=== PATIENT | female | born 1960 | race Caucasian/White ===

== ENCOUNTER 2017-01-19 06:57 | Day surgery (SDC) | payer OTHER ==
[2017-01-14 11:29] LABS: BASOPHILS 0.2 %; BASOPHILS ABSOLUTE 0.02 10/3/uL (0.0-0.16); EOSINOPHILS ABSOLUTE 0.16 10/3/uL (0.0-0.53); HEMATOCRIT 46.4 % (36.0-48.0); HEMOGLOBIN 15.8 g/dL (12.0-16.0); IMMATURE GRANULOCYTES 0.1 %; IMMATURE GRANULOCYTES ABSOLUTE 0.01 10/3/uL (0.0-0.11); LYMPHOCYTES ABSOLUTE 2.27 10/3/uL (0.67-4.30); MANUAL DIFF NO %; MEAN CORPUS HGB CONC 34.1 g/dL (32.0-36.0); MEAN CORPUSCULAR HEMOGLOB 30.8 pg (26.0-34.0); MEAN CORPUSCULAR VOLUME 90.4 fL (80-100); MEAN PLATELET VOLUME 9.8 fL (9.2-13.0); MONOCYTES 5.9 %; MONOCYTES ABSOLUTE 0.48 10/3/uL (0.21-1.20); NEUTROPHILS 63.8 %; NEUTROPHILS ABSOLUTE 5.18 10/3/uL (2.02-8.40); PLATELET COUNT 242 10/3/uL (150-400); RBC DISTRIBUTION WIDTH 12.9 % (12.0-16.0); RED CELL COUNT 5.13 10/6/uL (4.0-5.6); WHITE BLOOD CELLS 8.1 10/3/uL (4.5-10.5)
[2017-01-14 11:38] LABS: BUN (BLOOD UREA NITROGEN) 13 MG/DL (6-23); CALCIUM, SERUM 9.5 MG/DL (8.5-10.4); CHLORIDE, SERUM 110 MMOL/L (96-112); CO2 (CARBON DIOXIDE) 29 MMOL/L (24-34); CREATININE 0.77 MG/DL (0.55-1.02); GFR AFRICAN AMERICAN 101 ML/MIN (>=60); GFR NON AFRICAN AMERICAN 87 ML/MIN (>=60); GLUCOSE, SERUM 99 MG/DL (60-99); POTASSIUM, SERUM 4.7 MMOL/L (3.5-5.3); SODIUM, SERUM 143 MMOL/L (135-148)
--- NOTE | ~2017-01-19 | OP ---
Record Of Operation [facility] [address] [place]. [address] NAME: HUNTER RAGLAND : 62 STATUS : REG [facility] PAT#: [id number] AGE: 56 ADM/REG DATE : 01/19/17 MR#: [id number] REPORT SERV DATE: 01/19/17 DICTATED BY: TEMITOPE CHAN JR. DATE: 01/19/17 REPORT STATUS : Draft TRANSCRIBED BY: ETIENNE DATE: 01/19/17 DATE OF PROCEDURE: 01/19/2017 SURGEON: Temiotpe Chan M.D. WAREHOUSE MANAGER: Erlinda Sarah. PROCEDURE: Resection of intramuscular tumor on the right side of the back (12 cm). PREOPERATIVE DIAGNOSIS: Soft tissue tumor on the right side of the back. POSTOPERATIVE DIAGNOSIS: Intramuscular lipoma. ANESTHESIA: General. 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 Excision was indicated for definitive diagnosis and treatment. FINDINGS: On exploration of the area, there was a fatty-appearing tumor. This was located deep to the latissimus and actually seemed to be arising from within the paraspinous muscles. The completely measured 12 cm in greatest dimension and was grossly consistent with a lipoma. PROCEDURE IN DETAIL: With adequate general anesthesia, the patient was placed in the prone position. The back was prepped and draped sterilely. A transverse incision was made overlying the mass. Incision deepened down through the subcutaneous tissues. The fascia was divided. Flaps were raised to encompass the extent of the mass and then the latissimus was split. Mass was dissected free of the surrounding tissues down to the paraspinous muscle where this was excised along with a portion of the muscle. It was submitted to pathology fresh for examination. Bleeding was controlled with electrocautery clips, Surgiflo and Surgicel fibrillar. Then the wound was reapproximated by approximating the deep fascia with sutures of 2-0 Vicryl, subcutaneous tissues with 3-0 Vicryl, and skin with dermal Monocryl. Sterile dressings were applied. The patient left the operating room in satisfactory condition. The estimated blood loss was 30 mL. IVETTE/ETIENNE Temitope Chan Jr., M.D. / [id number] CC: Record Of Operation [address] [place]. [address] NAME: HUNTER RAGLAND : 62 STATUS : REG [facility] PAT#: [id number] AGE: 56 ADM/REG DATE : 01/19/17 MR#: [id number] REPORT SERV DATE: 01/19/17 DICTATED BY: TEMITOPE CHAN JR. DATE: 01/19/17 REPORT STATUS : Draft TRANSCRIBED BY: ETIENNE DATE: 01/19/17 Lyn Pascal Jr., M.D.
[~2017-01-19 06:57] MED LIST: LOPID6 PO; NORCO1 TAB PO; PERCOCET 10/3251 TAB PO; PRILOSEC40 MG PO; SYN.15 PO; SYNTHROID PO; ZESTORETIC PO; [UNRECOGNIZED DRUG - OTHER] PO
== END 2017-01-19 14:14 | disposition home or self-care (01) ==
LOC: SDC 06:57
PROVIDERS: Specialist
PROC: 0JB70ZZ Excision of Back Subcutaneous Tissue and Fascia, Open Approach (ICD-10-PCS; principal; 2017-01-19 09:30)
DX: D18.09 Hemangioma of other sites (principal); K21.9 Gastro-esophageal reflux disease without esophagitis; I10 Essential (primary) hypertension; G89.29 Other chronic pain; J30.81 Allergic rhinitis due to animal (cat) (dog) hair and dander; R63.4 Abnormal weight loss; F17.210 Nicotine dependence, cigarettes, uncomplicated; E03.9 Hypothyroidism, unspecified; Z90.710 Acquired absence of both cervix and uterus; Z90.49 Acquired absence of other specified parts of digestive tract; Z98.891 History of uterine scar from previous surgery; Z90.89 Acquired absence of other organs; Z79.891 Long term (current) use of opiate analgesic; Z79.899 Other long term (current) drug therapy
CPT/HCPCS: 71020; 80048; 85025; 88304; 88307; 93005; 94640; A9270-GY; J0330; J0690; J2250; J2270; J2405; J3010